=== PATIENT | female | born 1965 | race American Indian/Alaskan Native ===

== ENCOUNTER 2016-07-09 08:41 | Outpatient (CLI) | payer OTHER ==
[2016-07-09 09:30] LABS: Blood Urea Nitrogen 13 mg/dL (7-17)
[2016-07-09] MEDS ORDERED: NACL ONE (09:49)
== END 2016-07-09 08:42 | disposition home or self-care (01) ==
LOC: CT 08:41
PROVIDERS: ATTEND Radiology Diagnostic Radiology
DX: I72.2 Aneurysm of renal artery (principal)
CPT/HCPCS: 36415; 74174; 82565; 84520; Q9967